=== PATIENT | female | born 1955 | race Caucasian/White ===

== ENCOUNTER → 2018-04-14 | Outpatient (CLI) | payer OTHER | END | disposition home or self-care (01) | LOC: LABWHC1 08:20 | PROVIDERS: ATTEND Family Medicine | DX: E03.9 Hypothyroidism, unspecified (principal) | CPT/HCPCS: 36415; 84443 ==

== ENCOUNTER → 2020-08-29 | Outpatient (CLI) | payer OTHER ==
[2020-08-29 15:21] LABS: Basophils # (A) 0.1 k/uL (0-0.2); Basophils % (A) 1 %; Eosinophils # (A) 0.3 k/uL (0-0.7); Eosinophils % (A) 3 %; HCT 44.5 % (34.0-46.0); HGB 13.9 gm/dL (11.4-16.0); Lymphocytes % (A) 31 %; MCH 27.6 pg (25.0-35.0); MCHC 31.2 g/dL (31.0-37.0); MCV 88.4 fL (80.0-100.0); Mean Platelet Volume 8.1; Monocytes # (A) 0.4 k/uL (0-1.0); Monocytes % (A) 4 %; Neutrophils # (A) 5.6 k/uL (1.3-7.7); Neutrophils % (A) 59 %; Platelet Count 321 k/uL (150-450); RBC 5.04 m/uL (3.80-5.40); RDW 15.5 % (11.5-15.5); WBC 9.5 k/uL (3.8-10.6)
[2020-08-29 15:52] LABS: Calcium 9.8 mg/dL (8.4-10.2); Potassium 4.7 mmol/L (3.5-5.1)
== END | disposition home or self-care (01) ==
LOC: LABPAT 14:27
PROVIDERS: ATTEND Urology
DX: Z01.818 Encounter for other preprocedural examination (principal); N20.0 Calculus of kidney
CPT/HCPCS: 36415; 80048; 85025

== ENCOUNTER 2020-09-04 11:48 | Day surgery (SDC) | payer OTHER ==
[2020-08-31 09:10] VITALS: BMI 51.3
--- NOTE | 2020-08-31 17:36 | P.GSHP ---
History of Present Illness H&P Date: 08/31/20 Chief Complaint: Flank Pain The patient is a 65-year-old white female with a history of urolithiasis, for which she previously underwent ESWL. She was hospitalized in May 2020 with a Klebsiella UTI, complicated by left hydronephrosis due to a 3.5 mm left proximal ureteral calculus. She was also found to have a 9 mm right renal pelvic calculus and bilateral renal calculi. She underwent cystoscopy with bilateral ureteral stent insertion on 05/25/2020. On June 19, she underwent left ureteroscopy and sustained a left ureteral perforation. The stent was replaced. Right ureteroscopy with laser lithotripsy was performed. Her calculi were composed of calcium oxalate monohydrate (60%) and uric acid (40%). She now comes for cystoscopy, bilateral ureteral stent removal, bilateral ureteroscopy with holmium laser lithotripsy and possible stone basketing. - Constitutional Constitutional: Denies chills, Denies fever - Gastrointestinal Gastrointestinal: Denies nausea, Denies vomiting - Genitourinary (Female) Genitourinary: Reports flank pain, Reports kidney stones, Denies hematuria Past Medical History Past Medical History: Cancer, Diabetes Mellitus, Hypertension, Thyroid Disorder Additional Past Medical History / Comment(s): Hx. of kidney stones, started after chemo & radiation therapy., Hx. of blood clots. States has Factor V Leiden. Hx of Endometrial cancer. History of Any Multi-Drug Resistant Organisms: None Reported Past Surgical History: Adenoidectomy, Hysterectomy, Tonsillectomy Additional Past Surgical History / Comment(s): Stent placement for kidney surgery, Lithotripsy Additional Past Anesthesia/Blood Transfusion Reaction / Comment(s): Slow to wake up after anesthesia. Smoking Status: Former smoker - Past Family History Mother Family Medical History: Cancer, Hypertension Father Family Medical History: Coronary Artery Disease (CAD), Deep Vein Thrombosis (DVT) Additional Family Medical History / Comment(s): Blood disorder Medications and Allergies Home Medications Medication Instructions Recorded Confirmed Type Aspirin 325 mg PO DAILY 08/31/20 08/31/20 History Cholecalciferol [Vitamin D3 (10 10 mcg PO DAILY 08/31/20 08/31/20 History Mcg = 400 Iu)] Furosemide [Lasix] 40 mg PO DAILY 08/31/20 08/31/20 History Levothyroxine Sodium [Synthroid] 125 mcg PO DAILY 08/31/20 08/31/20 History Metoprolol Succinate [Toprol XL] 50 mg PO BID 08/31/20 08/31/20 History [place]-3/Dha/Epa/Fish Oil [Fish Oil 1 each PO BID 08/31/20 08/31/20 History 500 mg Softgel] Progesterone, Micronized 150 mg PO DAILY 08/31/20 08/31/20 History [Progesterone] Testosterone [Testopel] 75 mg INTRADERMA Q3M 08/31/20 08/31/20 History Vitamin B Complex/Folic Acid 0.4 mg PO DAILY 08/31/20 08/31/20 History [Vitamin B Complex Tablet] hydrALAZINE HCL 50 mg PO BID 08/31/20 08/31/20 History metFORMIN HCL 1,000 mg PO BID 08/31/20 08/31/20 History Allergies Allergy/AdvReac Type Severity Reaction Status Date / Time doxycycline Allergy Rash/Hives Verified 08/31/20 09:18 erythromycin base Allergy Anaphylaxis Verified 08/31/20 09:18 fluconazole [From Diflucan] Allergy Rash/Hives Verified 08/31/20 09:18 metronidazole [From Flagyl] Allergy Anaphylaxis Verified 08/31/20 09:18 ondansetron [From Zofran] Allergy Rash/Hives Verified 08/31/20 09:18 Penicillins Allergy Anaphylaxis Verified 08/31/20 09:18 Sulfa (Sulfonamide Allergy Anaphylaxis Verified 08/31/20 09:18 Antibiotics) Tetracyclines Allergy Rash/Hives Verified 08/31/20 09:18 Surgical - Exam - General well developed, well nourished, no distress - Neck no masses, trachea midline - Respiratory normal respiratory effort, clear to auscultation - Cardiovascular Rhythm: regular Abnormal Heart Sounds: no systolic murmur, no diastolic murmur, no rub, no S3 Gallop, no S4 Gallop, no click, no other - Abdomen Abdomen: soft, non tender, no guarding, no rigid, no rebound - Psychiatric oriented to time, oriented to person, oriented to place, speech is normal, memory intact Results - Imaging CT scan - abdomen: report reviewed Assessment and Plan (1) Calculus of kidney Status: Acute Code(s): N20.0 - CALCULUS OF KIDNEY SNOMED Code(s): 25912656 (2) Calculus of ureter Status: Acute Code(s): N20.1 - CALCULUS OF URETER SNOMED Code(s): 25933730 Plan: Cystoscopy, bilateral ureteral stent removal, bilateral ureteroscopy with holmium laser lithotripsy and possible stone basketing. The procedure has been reviewed in detail with the patient and her daughter. The rationale for the procedure was discussed, as were potential risks. These include anesthesia, bleeding, infection, ureteral injury, and inability to successfully remove all calculi. The patient is also aware of the risk of stricture formation at the site of prior ureteral perforation.
[~2020-09-04 11:48] MED LIST: HYDROmorphone 0.5 MG/0.5 ML SYRINGE IVP PRN; LACTATED RINGERS 1,000 ML IV SCH; LEVOFLOXACIN 500MG-D5W PMX 500 MG in DEXTROSE/WATER 1 100ML.BAG IVPB PRN; LIDOCAINE 1% (10MG/ML) FOR IV START INTRADERMA PRN; ONDANSETRON 4 MG/2 ML VIAL IVP ONE
--- NOTE | 2020-09-04 12:50 | XR ---
KUB HISTORY: Kidney stones, lithotripsy Frontal KUB submitted. Bilateral double-J stents are in place. Bilateral ossifications are present within the kidneys, at le ast 5-6 calcifications on the left, largest measures pressure 8 mm. Stable small calcification is pre sent over the right kidney, approximately 10 calcifications. Multiple surgical ila are present in the pelvis. There are multiple calcifications in the pelvis. IMPRESSION: Bilateral nephrolithiasis. Stopped changes.
[2020-09-04 13:25] LABS: Glucose,Whole Blood 98 mg/dL (75-99)
[2020-09-04] MEDS ORDERED: DEXAMETHASONE SOD PHOSPHATE 4 MG/ML 1 ML VIAL IV ONE (13:44)
[2020-09-04] MEDS ORDERED: hydrALAZINE HCL 20 MG/ML 1 ML VIAL IV ONE (13:44)
[2020-09-04] MEDS ORDERED: PROPOFOL 10 MG/ML 20 ML VIAL IV ONE (14:06)
[2020-09-04] MEDS ORDERED: LABETALOL 5 MG/ML VIAL MDV ONE (14:06)
[2020-09-04] MEDS ORDERED: LIDOCAINE 1% INJ 10MG/ML (20 ML MDV) ONE (14:06)
[2020-09-04] MEDS ORDERED: fentaNYL (PF) 50 MCG/ML 2 ML AMP ONE (14:06)
[2020-09-04] MEDS ORDERED: SUCCINYLCHOLINE CHLORIDE 100 MG/5 ML SYR IV ONE (14:06)
[2020-09-04] MEDS ORDERED: ePHEDrine SULFATE/0.9% NACL/PF 50 MG/5 ML SYRINGE IV ONE (14:06)
[2020-09-04] MEDS ORDERED: MIDAZOLAM 2 MG/2 ML VIAL ONE (14:06)
[2020-09-04] MEDS ORDERED: LACTATED RINGERS 1,000 ML IV ONE (16:16)
[2020-09-04 16:36] VITALS: TEMP 97.5
--- NOTE | 2020-09-04 16:41 | P.OP ---
Date of Procedure: 09/04/20 Preoperative Diagnosis: Left ureteral calculus, right renal calculi Postoperative Diagnosis: Bilateral renal calculi Procedure(s) Performed: Cystoscopy, left ureteral stent removal, right ureteral stent change, bilateral ureteroscopy with Holmium laser lithotripsy Anesthesia: KADI Surgeon: Jacek Reddy Estimated Blood Loss (ml): 5 IV fluids (ml): 1,300 Pathology: other (Calculus fragments for chemical analysis) Condition: stable Disposition: PACU Indications for Procedure: The patient is a 65-year-old white female with a history of urolithiasis, for which she previously underwent ESWL. She was hospitalized in May 2020 with a Klebsiella UTI, complicated by left hydronephrosis due to a 3.5 mm left proximal ureteral calculus. She was also found to have a 9 mm right renal pelvic calculus and bilateral renal calculi. She underwent cystoscopy with bilateral ureteral stent insertion on 05/25/2020. On June 19, she underwent left ureteroscopy and sustained a left ureteral perforation. The stent was replaced. Right ureteroscopy with laser lithotripsy was performed. Her calculi were composed of calcium oxalate monohydrate (60%) and uric acid (40%). She now comes for cystoscopy, bilateral ureteral stent removal, bilateral ureteroscopy with holmium laser lithotripsy and possible stone basketing. Operative Findings: Bilateral renal calculi, dense. Complete fragmentation on the left. Incomplete fragmentation on the right. Description of Procedure: The patient was taken to the operating room and placed in the dorsolithotomy position, with legs supported in Dorian stirrups. The external genitalia was prepped and draped sterilely. The 30 lens was used to introduce the 21-[place] Espinoza cystoscopic sheath through the urethra and into the bladder under direct vision. The bladder was examined in its entirety. No tumors or foreign bodies were seen. Both ureteral stents were removed with grasping forceps. The mini flexible ureteroscope was advanced in the bladder, and the left ureteral orifice was cannulated. The ureteroscope was slowly advanced under direct vision. Mild edema of the left proximal ureter was noted. The ureter was otherwise unremarkable. Several calyces contained calculi, the largest being within a lower pole calyx. The 200 micron Holmium laser probe was passed through the ureteroscope, and lithotripsy was performed. A dusting technique was utilized, followed by a fragmenting, essentially leaving the calculi into dustlike particles. The ureteroscope was slowly withdrawn under direct vision. There was no evidence of ureteral trauma. The ureteroscope was then passed up the right ureter, which appeared normal. Several small calculi were seen at the ureteral pelvic junction. Larger calculi were seen within an upper pole calyx, mid pole calyx, and lower pole calyx. These were all fragmented, though fragmentation of the lower pole calculi was incomplete due to impaired visualization. A 0.035 inch Glidewire was passed through the ureteroscope, which was removed. The Glidewire was backloaded into the cystoscope, which was passed into the bladder. A 22 cm, 6-[place] double-J ureteral stent was placed over the wire. Proper stent positioning was verified fluoroscopically and endoscopically. The bladder was emptied and the cystoscope removed. The patient tolerated the procedure well and was taken to the recovery room in stable condition. Several calculus fragments removed from the bladder were sent for chemical analysis. [facility] [place]: Procedure Acuity: Elective Stone Size and Location: Bilateral kidneys, up to 9 mm. Ureteral Dilation: No Ureteral Access Sheath Used: No Stone Sent for Analysis: Yes All Stones/Fragments Were Removed with a Basket: No Complications: No Preoperative Antibiotics Given: Yes Stent Placed: Yes If Stent Placed, Was String Left Attached: No If Stent Placed, When is it to be Removed: 2 weeks Discharge Medications: None
[2020-09-04] MEDS ORDERED: LABETALOL SYRINGE 5 MG/ML IVP ONE (16:44)
[2020-09-04 17:13] LABS: Glucose,Whole Blood 131 mg/dL (75-99)
[2020-09-04 17:14] VITALS: RESP 16
[2020-09-04] MEDS ORDERED: IBUPROFEN 200 MG TAB PO ONE (18:30)
[2020-09-04 18:53] VITALS: PULSE 76
[2020-09-04 19:15] VITALS: BP 186/80
--- NOTE | 2020-09-05 08:07 | FL ---
EXAMINATION TYPE: FL fluoroscopy <1hr DATE OF EXAM: 09/04/2020 HISTORY: Fluoroscopy time 4 seconds of fluoroscopy provided. IMPRESSION: 1. Fluoroscopy time.
== END 2020-09-04 19:48 | disposition home or self-care (01) ==
LOC: OR 11:48
PROVIDERS: ATTEND Urology
DX: N20.0 Calculus of kidney (principal); E11.9 Type 2 diabetes mellitus without complications; I10 Essential (primary) hypertension; E07.9 Disorder of thyroid, unspecified; Z87.442 Personal history of urinary calculi; Z92.21 Personal history of antineoplastic chemotherapy; Z92.3 Personal history of irradiation; Z85.42 Personal history of malignant neoplasm of other parts of uterus; Z86.718 Personal history of other venous thrombosis and embolism; Z90.89 Acquired absence of other organs; Z90.710 Acquired absence of both cervix and uterus; Z87.891 Personal history of nicotine dependence; Z82.49 Family history of ischemic heart disease and other diseases of the circulatory system; Z80.9 Family history of malignant neoplasm, unspecified; Z83.2 Family history of diseases of the blood and blood-forming organs and certain disorders involving the immune mechanism; Z79.84 Long term (current) use of oral hypoglycemic drugs; Z79.82 Long term (current) use of aspirin; Z79.890 Hormone replacement therapy; Z79.899 Other long term (current) drug therapy; Z88.1 Allergy status to other antibiotic agents; Z88.0 Allergy status to penicillin; Z88.2 Allergy status to sulfonamides; Z88.8 Allergy status to other drugs, medicaments and biological substances
CPT/HCPCS: 52356; 82365; 74018; C1758 ×3; C1769; C2625; C1894; J2250; J0360; J1100; J1956; J2001; J3010; J0330; J2704; 76000

== ENCOUNTER 2020-09-21 09:42 | Day surgery (SDC) | payer OTHER ==
--- NOTE | 2020-09-12 19:04 | P.GSHP ---
History of Present Illness H&P Date: 09/12/20 Chief Complaint: Flank pain The patient is a 65-year-old white female with a history of urolithiasis, for which she previously underwent ESWL. She was hospitalized in May 2020 with a Klebsiella UTI, complicated by left hydronephrosis due to a 3.5 mm left proximal ureteral calculus. She was also found to have a 9 mm right renal pelvic calculus and bilateral renal calculi. She underwent cystoscopy with bilateral ureteral stent insertion on 05/25/2020. On June 19, she underwent left ureteroscopy and sustained a left ureteral perforation. The stent was replaced. Right ureteroscopy with laser lithotripsy was performed. Her calculi were composed of calcium oxalate monohydrate (60%) and uric acid (40%). On 09/04/2020 she underwent cystoscopy with bilateral ureteroscopy and Holmium laser lithotripsy. Her left-sided stones were fragmented completely, but the stone burden on the right was considerable and she underwent laser lithotripsy with right ureteral stent change. She now comes for cystoscopy, right ureteroscopy with laser lithotripsy and possible stone basketing, right ureteral stent removal. - Constitutional Constitutional: Denies chills, Denies fever - Gastrointestinal Gastrointestinal: Denies nausea, Denies vomiting - Genitourinary (Female) Genitourinary: Reports kidney stones Medications and Allergies Home Medications Medication Instructions Recorded Confirmed Type Aspirin 325 mg PO DAILY 08/31/20 08/31/20 History Cholecalciferol [Vitamin D3 (10 10 mcg PO DAILY 08/31/20 08/31/20 History Mcg = 400 Iu)] Furosemide [Lasix] 40 mg PO DAILY 08/31/20 08/31/20 History Levothyroxine Sodium [Synthroid] 125 mcg PO DAILY 08/31/20 08/31/20 History Metoprolol Succinate [Toprol XL] 50 mg PO BID 08/31/20 08/31/20 History [place]-3/Dha/Epa/Fish Oil [Fish Oil 1 each PO BID 08/31/20 08/31/20 History 500 mg Softgel] Progesterone, Micronized 150 mg PO DAILY 08/31/20 08/31/20 History [Progesterone] Testosterone [Testopel] 75 mg INTRADERMA Q3M 08/31/20 08/31/20 History Vitamin B Complex/Folic Acid 0.4 mg PO DAILY 08/31/20 08/31/20 History [Vitamin B Complex Tablet] hydrALAZINE HCL 50 mg PO BID 08/31/20 08/31/20 History metFORMIN HCL 1,000 mg PO BID 08/31/20 08/31/20 History Allergies Allergy/AdvReac Type Severity Reaction Status Date / Time doxycycline Allergy Rash/Hives Verified 09/04/20 12:58 erythromycin base Allergy Anaphylaxis Verified 09/04/20 12:58 fluconazole [From Diflucan] Allergy Rash/Hives Verified 09/04/20 12:58 metronidazole [From Flagyl] Allergy Anaphylaxis Verified 09/04/20 12:58 ondansetron [From Zofran] Allergy Rash/Hives Verified 09/04/20 12:58 Penicillins Allergy Anaphylaxis Verified 09/04/20 12:58 Sulfa (Sulfonamide Allergy Anaphylaxis Verified 09/04/20 12:58 Antibiotics) Tetracyclines Allergy Rash/Hives Verified 09/04/20 12:58 Surgical - Exam - General well developed, well nourished, no distress - Respiratory normal respiratory effort, clear to auscultation - Cardiovascular Rhythm: regular Abnormal Heart Sounds: no systolic murmur, no diastolic murmur, no rub, no S3 Gallop, no S4 Gallop, no click, no other - Abdomen Abdomen: soft, non tender, no guarding, no rigid, no rebound - Genitourinary normal external genitalia - Psychiatric oriented to time, oriented to person, oriented to place, speech is normal, memory intact Assessment and Plan (1) Calculus of kidney Status: Acute Code(s): N20.0 - CALCULUS OF KIDNEY SNOMED Code(s): 23482016 Plan: Cystoscopy, right ureteral stent removal, right ureteroscopy with Holmium laser lithotripsy and possible stone basketing. The procedure has been reviewed in detail with the patient and her daughter. They are aware of potential risks, which include anesthesia, bleeding, infection, and ureteral injury.
[2020-09-18 12:48] VITALS: BMI 51.3
[~2020-09-21 09:42] MED LIST changes: -HYDROmorphone 0.5 MG/0.5 ML SYRINGE IVP PRN; -LACTATED RINGERS 1,000 ML IV SCH; -LIDOCAINE 1% (10MG/ML) FOR IV START INTRADERMA PRN; -ONDANSETRON 4 MG/2 ML VIAL IVP ONE
--- NOTE | 2020-09-21 10:16 | XR ---
Study: X-rays of the abdomen. Date of service 09/21/2020. HISTORY: Renal stones. TECHNIQUE: 2 views of the abdomen were obtained. Correlation made with x-rays from 09/04/2020. FINDINGS: Right-sided ureteral stent with the proximal loop in the renal pelvis and distal overlying the bladder is seen. Left-sided ureteral stent has been removed. Surgical clips are seen overlying th e pelvis. Tiny calcifications are seen in the lower pole of the right kidney measuring up to 5 mm. Large 9 mm a nd smaller 5 mm stone seen in the left kidney is not well visualized. IMPRESSION: Interval removal of left-sided ureteral stent. Large stone in the left renal pelvis is no longer visu alized.
[2020-09-21 11:05] LABS: Glucose,Whole Blood 107 mg/dL (75-99)
[2020-09-21] MEDS ORDERED: LACTATED RINGERS 1,000 ML IV ONE ×2 (11:37→13:53)
[2020-09-21] MEDS ORDERED: DEXAMETHASONE SOD PHOSPHATE 4 MG/ML 1 ML VIAL IV ONE (11:38)
[2020-09-21] MEDS ORDERED: ePHEDrine SULFATE/0.9% NACL/PF 50 MG/5 ML SYRINGE IV ONE (11:40)
[2020-09-21] MEDS ORDERED: PROPOFOL 10 MG/ML 20 ML VIAL IV ONE (11:40)
[2020-09-21] MEDS ORDERED: fentaNYL (PF) 50 MCG/ML 2 ML AMP ONE (11:40)
[2020-09-21] MEDS ORDERED: MIDAZOLAM 2 MG/2 ML VIAL ONE (11:40)
[2020-09-21] MEDS ORDERED: SUCCINYLCHOLINE CHLORIDE VIAL 200 MG/10 ML VIAL IV ONE (11:40)
[2020-09-21] MEDS ORDERED: LIDOCAINE 1% INJ 10MG/ML (20 ML MDV) ONE (11:40)
[2020-09-21] MEDS ORDERED: PHENYLEPHRINE-0.9% NACL SYG 1,000 MCG/10 ML SYRINGE ONE (11:40)
--- NOTE | 2020-09-21 12:59 | P.OP ---
Date of Procedure: 09/21/20 Preoperative Diagnosis: Right renal calculi Postoperative Diagnosis: Same Procedure(s) Performed: Cystoscopy, right ureteral stent removal, right ureteroscopy with Holmium laser lithotripsy Anesthesia: KADI Surgeon: Jacek Reddy Estimated Blood Loss (ml): 0 IV fluids (ml): 600 Pathology: none sent Condition: stable Disposition: PACU Indications for Procedure: The patient is a 65-year-old white female with a history of urolithiasis, for which she previously underwent ESWL. She was hospitalized in May 2020 with a Klebsiella UTI, complicated by left hydronephrosis due to a 3.5 mm left proximal ureteral calculus. She was also found to have a 9 mm right renal pelvic calculus and bilateral renal calculi. She underwent cystoscopy with bilateral ureteral stent insertion on 05/25/2020. On June 19, she underwent left ureteroscopy and sustained a left ureteral perforation. The stent was replaced. Right ureteroscopy with laser lithotripsy was performed. Her calculi were composed of calcium oxalate monohydrate (60%) and uric acid (40%). On 09/04/2020 she underwent cystoscopy with bilateral ureteroscopy and Holmium laser lithotripsy. Her left-sided stones were fragmented completely, but the stone burden on the right was considerable and she underwent laser lithotripsy with right ureteral stent change. She now comes for cystoscopy, right ureteroscopy with laser lithotripsy and possible stone basketing, right ureteral stent removal. Operative Findings: Several residual right renal calculi, all fragmented completely. Description of Procedure: The patient was taken to the operating room and placed in the dorsolithotomy position, with legs supported in Dorian stirrups. The external genitalia was prepped and draped sterilely. The 30 lens was used to introduce the 21-[place] Espinoza cystoscopic sheath through the urethra and into the bladder under direct vision. The bladder was examined in its entirety. No abnormalities were seen. Grasping forceps were used to grasp the distal end of the right ureteral stent, which was removed along with the cystoscope. The mini flexible ureteroscope was advanced into the bladder, and the right ureteral orifice was cannulated. The ureteroscope was advanced under direct vision, up to the right renal pelvis. Several small calculi were seen within the renal pelvis. The 272 micron Holmium laser probe was passed through the ureteroscope, and lithotripsy was performed. Each calyx was examined, and any calculi encountered were fragmented. The largest calculus was identified within a medial branch of an upper pole calyx, and measured approximately 6 mm in size. All calculi were fragmented, leaving no residual calculus fragments exceeding the size of the laser fiber tip. The ureteroscope was slowly withdrawn under direct vision. There was no evidence of ureteral trauma. The patient tolerated the procedure well and was taken to the recovery room in stable condition. [facility] [place] Report: Procedure Acuity: Elective Stone Size and Location: Several right renal calculi up to 6 mm in size Ureteral Dilation: No Ureteral Access Sheath Used: No Stone Sent for Analysis: No All Stones/Fragments Were Removed with a Basket: No Complications: No Preoperative Antibiotics Given: Yes Stent Placed: No Discharge Medications: None
[2020-09-21] MEDS ORDERED: LABETALOL SYRINGE 5 MG/ML IVP ONE (13:21)
[2020-09-21 13:23] VITALS: TEMP 96.8
[2020-09-21 13:27] VITALS: RESP 16
--- NOTE | 2020-09-21 13:39 | FL ---
EXAMINATION TYPE: FL fluoroscopy <1hr DATE OF EXAM: 09/21/2020 HISTORY: Fluoroscopy time 3 seconds of fluoroscopy provided. IMPRESSION: 1. Fluoroscopy time.
[2020-09-21 13:52] LABS: Glucose,Whole Blood 117 mg/dL (75-99)
[2020-09-21 14:29] VITALS: BP 173/79; PULSE 72
== END 2020-09-21 14:55 | disposition home or self-care (01) ==
LOC: OR 09:42
PROVIDERS: ATTEND Urology
DX: N20.0 Calculus of kidney (principal); I10 Essential (primary) hypertension; Z87.442 Personal history of urinary calculi; D68.51 Activated protein C resistance; E66.9 Obesity, unspecified; Z68.43 Body mass index [BMI] 50.0-59.9, adult; Z86.718 Personal history of other venous thrombosis and embolism; Z86.711 Personal history of pulmonary embolism; Z87.891 Personal history of nicotine dependence; Z96.0 Presence of urogenital implants; E07.9 Disorder of thyroid, unspecified; Z90.710 Acquired absence of both cervix and uterus; Z85.41 Personal history of malignant neoplasm of cervix uteri; Z79.899 Other long term (current) drug therapy; Z79.890 Hormone replacement therapy; Z79.84 Long term (current) use of oral hypoglycemic drugs; Z79.82 Long term (current) use of aspirin; Z88.8 Allergy status to other drugs, medicaments and biological substances; Z88.1 Allergy status to other antibiotic agents; Z88.0 Allergy status to penicillin; Z88.2 Allergy status to sulfonamides
CPT/HCPCS: 52353; 74018; C1758 ×3; C1769; C1894; J2250; J0330; J1100; J1956; J2001; J3010; J2370; J2704; 76000

== ENCOUNTER → 2020-10-27 | Outpatient (CLI) | payer OTHER ==
--- NOTE | 2020-10-27 08:18 | US ---
EXAMINATION TYPE: US kidneys/renal and bladder DATE OF EXAM: 10/27/2020 COMPARISON: NONE CLINICAL HISTORY: N20.0 Calculus of kidney. EXAM MEASUREMENTS: Right Kidney: 10.6 x 4.9 x 4.8 cm Left Kidney: 10.4 x 5.9x 4.9 cm Morbidly obese patient, limiting study. Right Kidney: possible stone seen lower pole measuring 0.5cm Left Kidney: probable cyst measuring 1.5 x 1.2 x 1.4cm, stone measuring 0.6 x 0.5 x 0.6cm Bladder: patients states she drank 32 oz, bladder not distended IMPRESSION: 1. Bilateral echogenic foci in the kidneys most likely represent nephrolithiasis. 2. Hypoechoic lesion in the interpolar region of the left kidney most likely represents a cyst and is amenable to follow-up.
--- NOTE | 2020-10-27 10:37 | XR ---
EXAMINATION TYPE: XR KUB DATE OF EXAM: 10/27/2020 COMPARISON: 09/21/2020 HISTORY: Pain TECHNIQUE: One view abdominal series FINDINGS: Ureteral stent is no longer seen. Hypertrophic and degenerative changes spine noted. There are surgic al clips. Calcification pelvis is probable phlebolith. Additional upper hemipelvic calcification stab le from previous also likely outside the genitourinary system. Bowel content obscures assessment of t he renal outlines for calcifications. IMPRESSION: 1. Ureteral stent removal. Bowel contents obscure the renal outlines.
== END | disposition home or self-care (01) ==
LOC: RADUSWWP 07:30
PROVIDERS: ATTEND Urology
DX: N20.0 Calculus of kidney (principal)
CPT/HCPCS: 74018; 76770

== ENCOUNTER → 2020-11-08 | Outpatient (CLI) | payer OTHER ==
--- NOTE | 2020-11-08 07:53 | US ---
EXAMINATION TYPE: US venous doppler duplex LE DATE OF EXAM: 11/08/2020 7:36 AM COMPARISON: NONE CLINICAL HISTORY: M79.89 swelling of limb, E11.9 diabetes, I10 HTN. SIDE PERFORMED: Bilateral TECHNIQUE: The lower extremity deep venous system is examined utilizing real time linear array sonog arleen with graded compression, doppler sonography and color-flow sonography. VESSELS IMAGED: Common Femoral Vein Deep Femoral Vein Greater Saphenous Vein * Femoral Vein Popliteal Vein Small Saphenous Vein * Proximal Calf Veins-not seen on left (* superficial vessels) Morbidly obese patient, technically difficult limited study. Right Leg: Negative for DVT Left Leg: More swollen than right, exam started at common femoral vein/deep femoral vein bifurcation due to pannus and associate creative director reach on this side. Appears negative for DVT as seen IMPRESSION: 1. Patient is morbidly obese causing technical difficulties. Left proximal calf veins are not visuali zed. 2. No evidence of deep venous thrombosis in the right lower extremity veins. 3. No definite evidence of deep venous thrombosis in the left lower extremity veins. The exam was beg un at the common femoral vein, deep femoral vein bifurcation due to pannus.
== END | disposition home or self-care (01) ==
LOC: RADUSWWP 07:01
PROVIDERS: ATTEND Internal Medicine Hematology & Oncology
DX: E66.01 Morbid (severe) obesity due to excess calories (principal); E11.9 Type 2 diabetes mellitus without complications; I10 Essential (primary) hypertension
CPT/HCPCS: 93970

== ENCOUNTER → 2021-03-01 | Outpatient (CLI) | payer OTHER ==
--- NOTE | 2021-03-01 12:18 | XR ---
KUB HISTORY: N20.0 CALCULUS OF KIDNEY . Frontal KUB on 2 images correlated to prior exam 10/27/2020 Multiple surgical clips are noted over the pelvis as on prior. There are likely vascular calcificatio ns present. There is calcification superimposed over the upper pole the left kidney which is crescent ic in shape similar to prior exam measuring 5 mm. Overlying bowel gas obscure underlying detail. Lung bases are clear. There are overlying artifacts. Disc changes are present in the visualized spine. IMPRESSION: Suspect left-sided nephrolithiasis. Facet changes and additional findings above.
== END | disposition home or self-care (01) ==
LOC: RADXRMAIN 06:48
PROVIDERS: ATTEND Urology
DX: N20.0 Calculus of kidney (principal)
CPT/HCPCS: 74018

== ENCOUNTER → 2021-04-23 | Outpatient (CLI) | payer OTHER, MEDICARE ==
--- NOTE | 2021-04-25 12:20 | MM ---
Reason for exam: screening (asymptomatic). Last mammogram was performed 10 years and 5 months ago. History: Patient is postmenopausal and has history of endometrial cancer at age 55. Family history of breast cancer in grandmother at age 70. Taking progesterone beginning at age 64. Physical Findings: A clinical breast exam by your physician is recommended on an annual basis and results should be correlated with mammographic findings. MG 3D Screening Mammo W/Cad Bilateral CC and MLO view(s) were taken. Prior study comparison: December 06, 2010, mammogram. There are scattered fibroglandular densities. Asymmetric density posterior lateral right breast is more defined. Asymmetric density superior left MLO view is more defined. ASSESSMENT: Incomplete: need additional imaging evaluation, BI-RAD 0 RECOMMENDATION: Special view mammogram of both breasts. (3D) If lesion persists on supplemental views, image directed ultrasound is recommended. [facility] will attempt to contact patient to return for supplemental views and ultrasound if indicated.
== END | disposition home or self-care (01) ==
LOC: RADMAMWWP 15:39
PROVIDERS: ATTEND Obstetrics & Gynecology
DX: Z12.31 Encounter for screening mammogram for malignant neoplasm of breast (principal); Z80.3 Family history of malignant neoplasm of breast; Z78.0 Asymptomatic menopausal state
CPT/HCPCS: 77063; 77067

== ENCOUNTER → 2021-05-08 | Outpatient (CLI) | payer OTHER, MEDICARE ==
--- NOTE | 2021-05-08 08:30 | MM ---
Reason for exam: additional evaluation requested from abnormal screening. Last mammogram was performed less than 1 month ago. History: Patient is postmenopausal and has history of endometrial cancer at age 55. Family history of breast cancer in grandmother at age 70. Taking progesterone beginning at age 64. Taking other hormone. Physical Findings: Nurse did not find any significant physical abnormalities on exam. MG 3D Work Up W/Cad DEZ Bilateral spot compression CC and ML view(s) were taken. Spot compression MLO view(s) were taken of the left breast. Prior study comparison: April 23, 2021, bilateral MG 3d screening mammo w/cad. December 06, 2010, mammogram. There are scattered fibroglandular densities. Lateral asymmetric density right breast appears to disperse. 6 month follow up as a precautionary measure. The left upper outer quadrant focal asymmetry also becomes less defined. Again, 6 month follow up recommended. These results were verbally communicated with the patient and result sheet given to the patient on 05/08/21. ASSESSMENT: Probably benign, BI-RAD 3 RECOMMENDATION: Follow-up diagnostic mammogram of both breasts in 6 months.
== END | disposition home or self-care (01) ==
LOC: RADMAMWWP 06:50
PROVIDERS: ATTEND Obstetrics & Gynecology
DX: N64.89 Other specified disorders of breast (principal); Z80.3 Family history of malignant neoplasm of breast; Z78.0 Asymptomatic menopausal state; Z85.42 Personal history of malignant neoplasm of other parts of uterus
CPT/HCPCS: 77062; 77066

== ENCOUNTER → 2021-11-07 | Outpatient (CLI) | payer BC, MEDICARE ==
--- NOTE | 2021-11-15 13:30 | MM ---
Reason for Exam: Follow-up at short interval from prior study. Last screening mammogram was performed 6 month(s) ago. Patient History: Menarche at age 13. Patient has no children. Left ovary removed at age 55. Right ovary removed at age 55. Hysterectomy at age 55. Postmenopausal. Ovarian cancer, age 55. Previous chest radiation therapy at age 55. Previous chemotherapy at age 55. Currently using Progesterone, starting at age 64. Paternal grandmother had breast cancer, age 70. Risk Values: Ivette 5 year model risk: 1.8%. NCI Lifetime model risk: 6.9%. Prior Study Comparison: 12/06/2010 Screening Mammogram, Unknown. 04/23/2021 Bilateral Screening Mammogram, [facility]. 05/08/2021 Bilateral Diagnostic Mammogram, [facility]. Tissue Density: There are scattered fibroglandular densities. Findings: Analyzed By CAD. Comparison symmetrical and stable. Focal asymmetries appear stable. No persistent suspicious spiculated or lobular mass or clustered microcalcifications are evident. No secondary signs of malignancy are radiographically apparent. Overall Assessment: Benign, BI-RAD 2 Management: Screening Mammogram of both breasts in 6 months. A clinical breast exam by your physician is recommended on an annual basis and results should be correlated with mammographic findings. This exam should not preclude additional follow-up of suspicious palpable abnormalities. Results were given to the patient verbally at the time of exam. Electronically signed and approved by: Jorge Alberto Soto D.O. Radiologis
== END | disposition home or self-care (01) ==
LOC: RADMAMWWP 07:04
PROVIDERS: ATTEND Obstetrics & Gynecology
DX: R92.8 Other abnormal and inconclusive findings on diagnostic imaging of breast (principal); Z78.0 Asymptomatic menopausal state; Z80.3 Family history of malignant neoplasm of breast
CPT/HCPCS: 77062; 77066

== ENCOUNTER 2022-03-11 11:43 | Emergency (ER) | payer BC, MEDICARE ==
[2022-03-11 11:47] VITALS: TEMP 97.8
[2022-03-11] MEDS ORDERED: KETOROLAC 15 MG/ML 1 ML VIAL IVP STA (13:55)
--- NOTE | 2022-03-11 14:00 | ED ---
Back Pain HPI - General Chief Complaint: Back Pain/Injury Stated Complaint: back pain Time Seen by Provider: 03/11/22 13:30 Source: patient, RN notes reviewed, old records reviewed Limitations: no limitations - History of Present Illness Initial Comments: 66-year-old female presents to the emergency room with complaints of left lower back pain that started as a dull ache on Friday and has progressed to a constant burning pain that wraps around to her left lower abdomen and left thigh. Patient denies any injury. She states somewhat similar to kidney stone in the past. Denies any fevers, no nausea vomiting or diarrhea. She does have a history of HTN, factor V laden and DVT. Takes aspirin daily. Did take 1 Advil and 2 aspirin with no relief of pain this morning. MD Complaint: back pain -: days(s) (4) Radiation: abdomen (left lower), left leg (thigh) Severity scale (1-10): 10 Quality: burning Consistency: constant Improves With: none Worsens With: movement Associated Symptoms: denies other symptoms Treatments Prior to Arrival: NSAIDS, ASA - Related Data Home Medications Medication Instructions Recorded Confirmed Aspirin 325 mg PO DAILY 08/31/20 09/18/20 Cholecalciferol [Vitamin D3 (10 10 mcg PO DAILY 08/31/20 09/18/20 Mcg = 400 Iu)] Furosemide [Lasix] 40 mg PO DAILY 08/31/20 09/18/20 Levothyroxine Sodium [Synthroid] 125 mcg PO QAM 08/31/20 09/18/20 Metoprolol Succinate [Toprol XL] 50 mg PO BID 08/31/20 09/18/20 [place]-3/Dha/Epa/Fish Oil [Fish Oil 1 each PO BID 08/31/20 09/18/20 500 mg Softgel] Progesterone, Micronized 150 mg PO DAILY 08/31/20 09/18/20 [Progesterone] Testosterone [Testopel] 75 mg INTRADERMA Q3M 08/31/20 09/18/20 Vitamin B Complex/Folic Acid 0.4 mg PO DAILY 08/31/20 09/18/20 [Vitamin B Complex Tablet] hydrALAZINE HCL 50 mg PO BID 08/31/20 09/18/20 metFORMIN HCL [Glucophage] 1,000 mg PO BID 08/31/20 09/18/20 Previous Rx's Medication Instructions Recorded Lidocaine 5% Patch [Lidoderm] 1 patch TOPICAL DAILY #14 patch 03/11/22 predniSONE 50 mg PO DAILY #5 tab 03/11/22 Allergies Allergy/AdvReac Type Severity Reaction Status Date / Time doxycycline Allergy Rash/Hives Verified 03/11/22 11:47 erythromycin base Allergy Anaphylaxis Verified 03/11/22 11:47 fluconazole [From Diflucan] Allergy Rash/Hives Verified 03/11/22 11:47 metronidazole [From Flagyl] Allergy Anaphylaxis Verified 03/11/22 11:47 ondansetron [From Zofran] Allergy Rash/Hives Verified 03/11/22 11:47 Penicillins Allergy Anaphylaxis Verified 03/11/22 11:47 Sulfa (Sulfonamide Allergy Anaphylaxis Verified 03/11/22 11:47 Antibiotics) Tetracyclines Allergy Rash/Hives Verified 03/11/22 11:47 Review of Systems ROS Statement: Those systems with pertinent positive or pertinent negative responses have been documented in the HPI. ROS Other: All systems not noted in ROS Statement are negative. Past Medical History Past Medical History: Blood Disorder, Cancer, Diabetes Mellitus, Deep Vein Thrombosis (DVT), Hypertension, Pulmonary Embolus (PE), Thyroid Disorder Additional Past Medical History / Comment(s): Leiden Factor 5 and Factor 2. Hx Endometrial Cancer in 2010. hx DVT to left leg and PE to bilateral lungs during Chemotherapy treatment. Hx Kidney Stones. Hx Vertigo. History of Any Multi-Drug Resistant Organisms: None Reported Past Surgical History: Hysterectomy, Tonsillectomy Additional Past Surgical History / Comment(s): Kidney Stones surgery. Past Anesthesia/Blood Transfusion Reactions: No Reported Reaction Additional Past Anesthesia/Blood Transfusion Reaction / Comment(s): Vertigo. Past Psychological History: No Psychological Hx Reported Smoking Status: Former smoker Past Alcohol Use History: Occasional Past Drug Use History: None Reported - Past Family History Father Family Medical History: Cancer Mother Family Medical History: Cancer Brother(s) Family Medical History: Cancer, Pulmonary Embolus General Exam Limitations: no limitations General appearance: alert, in no apparent distress Head exam: Present: atraumatic Neck exam: Absent: tenderness, meningismus Respiratory exam: Absent: respiratory distress, accessory muscle use Cardiovascular Exam: Present: regular rate GI/Abdominal exam: Present: soft, tenderness (LLQ). Absent: guarding, rebound, rigid Extremities exam: Present: full ROM, normal capillary refill, other (Bilateral lower extremity swelling). Absent: tenderness Back exam: Present: tenderness (Lumbar paraspinal) Expanded Back exam: Absent: saddle anesthesia Neurological exam: Present: alert, oriented X3, normal gait Psychiatric exam: Present: normal affect, normal mood Skin exam: Present: warm, dry, normal color. Absent: cyanosis, diaphoretic Course Vital Signs 03/11/22 03/11/22 03/11/22 11:45 15:10 15:42 Temperature 97.8 F Pulse Rate 88 69 67 Respiratory 20 18 18 Rate Blood Pressure 226/104 199/100 187/83 O2 Sat by Pulse 99 98 97 Oximetry Medical Decision Making - Medical Decision Making Labs are unremarkable. UA shows no evidence of infection or blood consistent with kidney stone. She was given Toradol with some relief. X-ray lumbar spine was read and shows no acute fracture. Radiology read degenerative grade 1 spondylolisthesis L1-2, L2-L3, L4-L5. Facet arthropathy throughout. No vertebral compression collapse. No evidence of free air or bowel obstruction on KUB. Suspect 6 mm left renal calculus. Symptoms are consistent with a lumbar radiculopathy with radiating burning pain left lower lumbar spine to the left lateral and anterior thigh. Denies any bowel or bladder incontinence. She is able to ambulate. She was prescribed Lidoderm patches and prednisone. States she is not diabetic, that she was put on metformin in the past for weight loss not diabetes. Blood pressure was elevated likely related to pain in addition to her not taking her afternoon blood pressure medication. She denies any chest pain or shortness of breath. No abdominal pain. Patient directed to take prednisone and Tylenol for pain and use Lidoderm patches as needed. She was advised not to take ibuprofen/Motrin products while taking prednisone. Strict return parameters were discussed. Case discussed with Dr. Matos - Lab Data Result diagrams: 03/11/22 14:26 03/11/22 14: Lab Results 03/11/22 03/11/22 03/11/22 Range/Units 14:26 14:26 14:26 WBC 9.1 (3.8-10.6) k/uL RBC 5.00 (3.80-5.40) m/uL Hgb 14.2 (11.4-16.0) gm/dL Hct 44.1 (34.0-46.0) % MCV 88.3 (80.0-100.0) fL MCH 28.5 (25.0-35.0) pg MCHC 32.3 (31.0-37.0) g/dL RDW 14.2 (11.5-15.5) % Plt Count 282 (150-450) k/uL MPV 8.9 Neutrophils % 68 % Lymphocytes % 24 % Monocytes % 3 % Eosinophils % 2 % Basophils % 1 % Neutrophils # 6.2 (1.3-7.7) k/uL Lymphocytes # 2.2 (1.0-4.8) k/uL Monocytes # 0.3 (0-1.0) k/uL Eosinophils # 0.2 (0-0.7) k/uL Basophils # 0.1 (0-0.2) k/uL Hypochromasia Slight Sodium 137 (137-145) mmol/L Potassium 4.4 (3.5-5.1) mmol/L Chloride 102 (98-107) mmol/L Carbon Dioxide 26 (22-30) mmol/L Anion Gap 9 mmol/L BUN 13 (7-17) mg/dL Creatinine 0.68 (0.52-1.04) mg/dL Est GFR (CKD-EPI)AfAm >90 (>60 ml/min/1.73 sqM) Est GFR (CKD-EPI)NonAf >90 (>60 ml/min/1.73 sqM) Glucose 115 H (74-99) mg/dL Plasma Lactic Acid [place] (0.7-2.0) mmol/L Calcium 9.1 (8.4-10.2) mg/dL Urine Color Yellow Urine Appearance Clear (Clear) Urine pH 6.5 (5.0-8.0) Ur Specific [place] 1.018 (1.001-1.035) Urine Protein Negative (Negative) Urine Glucose (UA) Negative (Negative) Urine Ketones Negative (Negative) Urine Blood Negative (Negative) Urine Nitrite Negative (Negative) Urine Bilirubin Negative (Negative) Urine Urobilinogen <2.0 (<2.0) mg/dL Ur Leukocyte Esterase Negative (Negative) 03/11/22 Range/Units 14:26 WBC (3.8-10.6) k/uL RBC (3.80-5.40) m/uL Hgb (11.4-16.0) gm/dL Hct (34.0-46.0) % MCV (80.0-100.0) fL MCH (25.0-35.0) pg MCHC (31.0-37.0) g/dL RDW (11.5-15.5) % Plt Count (150-450) k/uL MPV Neutrophils % % Lymphocytes % % Monocytes % % Eosinophils % % Basophils % % Neutrophils # (1.3-7.7) k/uL Lymphocytes # (1.0-4.8) k/uL Monocytes # (0-1.0) k/uL Eosinophils # (0-0.7) k/uL Basophils # (0-0.2) k/uL Hypochromasia Sodium (137-145) mmol/L Potassium (3.5-5.1) mmol/L Chloride (98-107) mmol/L Carbon Dioxide (22-30) mmol/L Anion Gap mmol/L BUN (7-17) mg/dL Creatinine (0.52-1.04) mg/dL Est GFR (CKD-EPI)AfAm (>60 ml/min/1.73 sqM) Est GFR (CKD-EPI)NonAf (>60 ml/min/1.73 sqM) Glucose (74-99) mg/dL Plasma Lactic Acid [place] 1.3 (0.7-2.0) mmol/L Calcium (8.4-10.2) mg/dL Urine Color Urine Appearance (Clear) Urine pH (5.0-8.0) Ur Specific [place] (1.001-1.035) Urine Protein (Negative) Urine Glucose (UA) (Negative) Urine Ketones (Negative) Urine Blood (Negative) Urine Nitrite (Negative) Urine Bilirubin (Negative) Urine Urobilinogen (<2.0) mg/dL Ur Leukocyte Esterase (Negative) Disposition Clinical Impression: Spondylolisthesis Disposition: HOME SELF-CARE Condition: Good Instructions (If sedation given, give patient instructions): Acute Low Back Pain (ED) Additional Instructions: Take Tylenol and Motrin as needed for pain or discomfort. Use Lidoderm patches for topical pain relief. Follow-up with her primary care doctor this week Prescriptions: Lidocaine 5% Patch [Lidoderm] 1 patch TOPICAL DAILY #14 patch predniSONE 50 mg PO DAILY #5 tab Is patient prescribed a controlled substance at d/c from ED?: No Referrals: Shaka Cortez MD [Primary Care Provider] - 1-2 days Time of Disposition: 16:19
[2022-03-11] MEDS ORDERED: hydrALAZINE HCL 20 MG/ML 1 ML VIAL IVP STA (14:28)
[2022-03-11 14:32] LABS: Basophils # (A) 0.1 k/uL (0-0.2); Basophils % (A) 1 %; Eosinophils # (A) 0.2 k/uL (0-0.7); Eosinophils % (A) 2 %; HCT 44.1 % (34.0-46.0); HGB 14.2 gm/dL (11.4-16.0); Hypochromasia Slight; Lymphocytes # (A) 2.2 k/uL (1.0-4.8); Lymphocytes % (A) 24 %; MCH 28.5 pg (25.0-35.0); MCHC 32.3 g/dL (31.0-37.0); MCV 88.3 fL (80.0-100.0); Mean Platelet Volume 8.9; Monocytes # (A) 0.3 k/uL (0-1.0); Monocytes % (A) 3 %; Neutrophils # (A) 6.2 k/uL (1.3-7.7); Neutrophils % (A) 68 %; Platelet Count 282 k/uL (150-450); RDW 14.2 % (11.5-15.5); WBC 9.1 k/uL (3.8-10.6)
[2022-03-11 14:41] LABS: African American GFR (CKD) >90 (>60 ml/min/1.73 sqM); Anion Gap 9 mmol/L; Blood Urea Nitrogen 13 mg/dL (7-17); Calcium 9.1 mg/dL (8.4-10.2); Carbon Dioxide 26 mmol/L (22-30); Chloride 102 mmol/L (98-107); Glucose 115 mg/dL (74-99); Non-African American GFR(CKD) >90 (>60 ml/min/1.73 sqM); Potassium 4.4 mmol/L (3.5-5.1); Sodium 137 mmol/L (137-145)
[2022-03-11 14:45] LABS: Appearance,Urine Clear (Clear); Bilirubin,Urine Negative (Negative); Blood,Urine Negative (Negative); Color,Urine Yellow; Glucose,Urine (UA) Negative (Negative); Ketones,Urine Negative (Negative); Leukocyte Esterase,Urine Negative (Negative); Nitrite,Urine Negative (Negative); PH, Urine 6.5 (5.0-8.0); Protein,Urine Negative (Negative); Specific Gravity,Urine 1.018 (1.001-1.035); Urobilinogen,Urine <2.0 mg/dL (<2.0)
[2022-03-11] MEDS ORDERED: ORPHENADRINE 30 MG/ML 2 ML VIAL IM STA (14:52)
--- NOTE | 2022-03-11 15:02 | XR ---
EXAMINATION TYPE: XR KUB DATE OF EXAM: 03/11/2022 Comparison: 03/01/2021 Clinical History: 66-year-old female left lower back pain kidney stone Findings: Hazy lower lung densities may relate to large patient body habitus. No evidence for free intraperiton eal air. No dilated small bowel or air-fluid levels. Scattered air is present throughout the colon ex tending distally to the rectum. Mild stool within the right side of the abdomen. Surgical roots on edna th sides of the pelvis. Suggestion of a 6 mm calcification in the left mid abdomen. Impression: 1. No evidence for free air or bowel obstruction. 2. Suspect a 6 mm left renal calculus. 3. Hazy lower lung densities may relate to large patient body habitus. Correlate for any acute respir atory symptoms.
--- NOTE | 2022-03-11 15:08 | XR ---
EXAMINATION TYPE: XR lumbar spine 3V DATE OF EXAM: 03/11/2022 Comparison: None Clinical History: 66-year-old female pain Findings: Dextroconvex curvature centered on the direct lumbar junction. 5 lumbar type vertebral bodies. Modera te disc/endplate degenerative change upper lumbar spine. Degenerative grade 1 retrolisthesis L1-L2 an d L2-L3. Prominent grade 1 anterolisthesis L4-L5. Hypertrophic facet arthropathy throughout the lumba r spine. Vertebral body heights are preserved. Surgical clips on both sides of the pelvis. Impression: 1. Degenerated dextroconvex curvature along the thoracolumbar junction. Moderate degenerative disc di sease upper lumbar spine. Facet arthropathy throughout. 2. No vertebral compression collapse. 3. Degenerative grade 1 spondylolisthesis L1-L2, L2-L3, and L4-L5.
[2022-03-11 15:11] VITALS: RESP 18
[2022-03-11 15:43] VITALS: BP 187/83; PULSE 67
== END 2022-03-11 16:45 | disposition home or self-care (01) ==
LOC: EC 11:43
DX: M43.16 Spondylolisthesis, lumbar region (principal); I10 Essential (primary) hypertension; E11.9 Type 2 diabetes mellitus without complications; Z86.718 Personal history of other venous thrombosis and embolism; Z79.82 Long term (current) use of aspirin; Z88.0 Allergy status to penicillin; Z88.1 Allergy status to other antibiotic agents; Z88.2 Allergy status to sulfonamides; Z88.8 Allergy status to other drugs, medicaments and biological substances; Z79.84 Long term (current) use of oral hypoglycemic drugs; Z86.711 Personal history of pulmonary embolism; Z85.42 Personal history of malignant neoplasm of other parts of uterus; Z87.891 Personal history of nicotine dependence; Z92.21 Personal history of antineoplastic chemotherapy
CPT/HCPCS: 99284; 96374; 96375; 96372; 36415; 80048; 83605; 85025; 81003; 72100; 74018; J0360; J2360; J1885; 99283

== ENCOUNTER → 2023-09-09 | Outpatient (CLI) | payer BC, MEDICARE ==
--- NOTE | 2023-09-10 08:45 | US ---
EXAMINATION TYPE: US arterial LE single level DATE OF EXAM: 09/09/2023 2:28 PM CLINICAL INDICATION: Female, 68 years old with history of I73.9 PERIPHERAL VASCULAR DISEASE, UNSPECIF IED; Non-healing wound right lower leg at ortiz History of: Smoker: Previous Hypertension: Yes Diabetic: No Hyperlipidemia: No TIA/CVA: No Previous Vascular Surgery: No CAD: No [place]: No Vascular Ulcers: Yes, right lower leg Claudication: No Gangrene: No Doppler Waveforms: Right: Biphasic waveforms Left: Diphasic waveforms Right Brachial Pressure: 209 Left Brachial Pressure: Unable to occlude >220 Ankle-Brachial Indices: Right: 1.0 Left: 1.0 (Vessel hardening > 1.4; Normal 0.9 - 1.4, Moderate 0.7 - 0.9, Severe 0.5-0.7) Dorsalis pedis arteries have ratio 0.67 on the right and 0.68 on the left compatible with severe sten osis. Toe Brachial Indices: Right: 0.7 Left: 0.7 Wound Center called on pt's high BP- was told by wound center that pt needed to call primary physic kayode. IMPRESSION: 1. Severe stenosis dorsalis pedis arteries bilaterally. 2. Elevated blood pressure. Patient was advised to call primary care physician.
--- NOTE | 2023-09-10 08:52 | US ---
EXAMINATION TYPE: US venous doppler duplex LE BI DATE OF EXAM: 09/09/2023 2:06 PM COMPARISON: US CLINICAL INDICATION: Female, 68 years old with history of I73.9 PERIPHERAL VASCULAR DISEASE, UNSPECIF IED; Non-healing wound right lower leg SIDE PERFORMED: Bilateral TECHNIQUE: The lower extremity deep venous system is examined utilizing real time linear array sonog arleen with graded compression, doppler sonography and color-flow sonography. VESSELS IMAGED: Common Femoral Vein Deep Femoral Vein Greater Saphenous Vein * Femoral Vein Popliteal Vein Small Saphenous Vein * Proximal Calf Veins (* superficial vessels) Right Leg: Negative for DVT Left Leg: Negative for DVT IMPRESSION: 1. Bilateral lower extremity ultrasound negative for deep venous thrombosis.
== END | disposition home or self-care (01) ==
LOC: RADUSWWP 13:41
PROVIDERS: ATTEND Podiatrist
DX: I70.213 Atherosclerosis of native arteries of extremities with intermittent claudication, bilateral legs (principal); R03.0 Elevated blood-pressure reading, without diagnosis of hypertension; I87.2 Venous insufficiency (chronic) (peripheral); L97.801 Non-pressure chronic ulcer of other part of unspecified lower leg limited to breakdown of skin
CPT/HCPCS: 93922; 93970